=== PATIENT | female | born 1950 | race Caucasian/White ===

== ENCOUNTER 2016-10-02 18:08 | Outpatient (CLI) | payer OTHER ==
--- NOTE | 2016-10-03 09:42 | Ultrasound Report ---
PELVIC ULTRASOUND: 10/02/2016 CLINICAL INDICATION: Postmenopausal bleeding. TECHNIQUE: Transabdominal pelvic ultrasound performed for global evaluation. Transvaginal pelvic ul trasound performed for detailed evaluation. Real-time scanning performed and static images obtained. FINDINGS: The uterus is anteverted, measuring 7.2 x 4.8 x 3.7 cm. The endometrial echo complex is t hickened, measuring 12 mm. No focal myometrial lesion is seen. The ovaries are unremarkable, with t he right measuring 2.0 x 1.2 x 0.9 cm and the left measuring 3.0 x 2.0 x 1.4 cm. No free fluid is pr esent. IMPRESSION: THICKENED ENDOMETRIUM. CORRELATION WITH ENDOMETRIAL BIOPSY IS RECOMMENDED. NORMAL OVAR IES. JOB #: [id number] EXT JOB #:[id number]
== END 2016-10-02 18:09 | disposition home or self-care (01) ==
LOC: DI 18:08
PROVIDERS: ATTEND Internal Medicine
DX: R93.8 Abnormal findings on diagnostic imaging of other specified body structures (principal)
CPT/HCPCS: 76830; 76856

== ENCOUNTER 2016-10-09 07:21 | Outpatient (CLI) | payer MEDICARE ==
[2016-10-09 08:04] LABS: BASOPHILS # (AUTO) 0.1 10^3/uL (0.0-0.1); BASOPHILS % (AUTO) 1.5 %; EOSINOPHILS # (AUTO) 0.3 10^3/uL (0.0-0.7); EOSINOPHILS % (AUTO) 4.3 %; HCT - HEMATOCRIT 43.5 % (37.0-47.0); HGB - HEMOGLOBIN 14.8 g/dL (12.0-16.0); LYMPHOCYTES # (AUTO) 2.3 10^3/uL (1.5-3.5); LYMPHOCYTES % (AUTO) 28.5 %; MEAN CORPUSCULAR HEMOGLOBIN 31.4 pg (27.0-31.0); MEAN CORPUSCULAR HGB CONC 34.1 g/dL (32.0-36.0); MEAN CORPUSCULAR VOLUME 92.2 fL (81.0-99.0); MEAN PLATELET VOLUME 8.1 fL (7.9-10.8); MONOCYTES # (AUTO) 0.9 10^3/uL (0.0-1.0); NEUTROPHILS # (AUTO) 4.4 10^3/uL (1.5-6.6); NEUTROPHILS % (AUTO) 54.7 %; RED BLOOD COUNT 4.72 10^6/uL (4.20-5.40); RED CELL DISTRIBUTION WIDTH 13.6 % (12.0-15.0); UNCORRECTED WHITE BLOOD COUNT 8.1 x10^3/uL; WHITE BLOOD COUNT 8.1 x10^3/uL (4.8-10.8)
[2016-10-09 08:23] LABS: ALBUMIN/GLOBULIN RATIO 1.1 (1.0-2.2); BILIRUBIN,TOTAL 0.7 mg/dL (0.2-1.0); CALCIUM 9.2 mg/dL (8.5-10.3); POTASSIUM 4.1 mmol/L (3.5-5.0); TOTAL PROTEIN 7.3 g/dL (6.7-8.2)
== END 2016-10-09 07:22 | disposition home or self-care (01) ==
LOC: LAB 07:21
PROVIDERS: ATTEND Internal Medicine
DX: K86.1 Other chronic pancreatitis (principal)
CPT/HCPCS: 36415; 80053; 83690; 84443; 85025

== ENCOUNTER 2016-11-13 07:59 | Day surgery (SDC) | payer MEDICARE ==
--- NOTE | 2016-11-11 12:07 | PREOP HISTORY & PHYSICAL ---
DATE OF ADMISSION/SURGERY: 11/13/2016. HISTORY OF PRESENT ILLNESS: The patient is a 66-year-old female, 3, para 2, AB 1, who has bee n approximately menopausal for 10 years and has been on a combination of estrogen and progesterone du ring that whole time. She has had her first episode of postmenopausal bleeding. Ultrasound showed end ometrial thickness of 12 mm. Office biopsy was attempted; however, the cervical stenosis prevented en try into the endometrial cavity. PAST HISTORY: The patient had 2 normal vaginal deliveries. She has had a laparoscopic cholecystectomy in 2007. ALLERGIES 1. PENICILLIN. 2. SULFA. 3. BETADINE. 4. PABA. CURRENT MEDICATIONS Include 1. Prometrium. 2. She was on estradiol 1 mg, that has now been stopped. 3. She also takes an antidepressant. SOCIAL HISTORY: The patient smoked at one point years ago, quit smoking 35 years ago. FAMILY HISTORY: Father, heart disease, age 83, stroke at 83. Sister, rheumatoid arthritis. REVIEW OF SYSTEMS: The patient in the past had recurrent pancreatitis with hospitalizations. Once, ofelia retired several years ago. This has not recurred since. Dermatology, the patient had a melanoma in 1999, which was removed with no recurrence. PHYSICAL EXAMINATION HEENT: Within normal limits. NECK: No thyromegaly. LUNGS: Clear. HEART: Regular rhythm. There is no murmur or gallop. ABDOMEN: Unremarkable. There are no masses or organomegaly. EXTREMITIES: Normal. NEUROLOGIC: Exam is grossly intact. GENITOURINARY: Introitus and vagina are atrophic. The cervical os is stenotic and os finder could not be passed. The uterus is normal size. There are no palpable adnexal masses. IMPRESSION: Postmenopausal bleeding and cervical stenosis. PLAN: Dilatation hysteroscopy and curettage. The procedure has been explained to the patient with the intended anticipated results, and she agrees to proceed. JOB #: [id number] EXT JOB #:[id number]
[2016-11-13] MEDS ORDERED: SCOPOLAMINE PATCH TOP ONE (08:19)
[2016-11-13] MEDS ORDERED: LACTATED RINGERS 1,000 ML IV ONE ×2 (08:19→10:14)
[2016-11-13] MEDS ORDERED: MIDAZOLAM 2 MG/2 ML VIAL IVP ONE (08:45)
[2016-11-13] MEDS ORDERED: DEXAMETHASONE 4 MG/ML VIAL IVP ONE (08:45)
[2016-11-13] MEDS ORDERED: PROPOFOL 200 MG/20 ML VIAL IVP ONE (08:45)
[2016-11-13] MEDS ORDERED: fentaNYL 100 MCG/2 ML VIAL IVP ONE (08:45)
[2016-11-13] MEDS ORDERED: ONDANSETRON 4 MG/2 ML VIAL IVP ONE (08:45)
[2016-11-13] MEDS ORDERED: LIDOCAINE-PF 2% 10 ML AMP SUBQ ONE (08:45)
--- NOTE | 2016-11-13 09:16 | OPERATIVE REPORT ---
DATE OF SURGERY: 11/13/2016 00:00:00 PREOPERATIVE DIAGNOSES 1. Postmenopausal bleeding. 2. Cervical stenosis. OPERATION: Hysteroscopy D and C. POSTOPERATIVE DIAGNOSES 1. Postmenopausal bleeding. 2. Cervical stenosis. SURGEON: Ronen Lopez MD. ANESTHESIA: General with an LMA. PROCEDURE: In the lithotomy position, the patient's perineum and vagina were prepped and draped in th e usual fashion. Speculum was placed in the vagina. The anterior lip of the cervix was grasped with a single-toothed tenaculum. Hegar dilators were utilized to dilate the cervix to an 8. The uterus soun ded to 7 cm. The hysteroscope was inserted under direct vision and saline was the distending medium. There were several small polyps noted and some evidence of generalized hyperplasia. Curettage was und ertaken with return of small amounts of tissue. Lei stone forceps were passed. The specimen was s ubmitted in toto. The patient tolerated the procedure well. There were no intraoperative complication s. BLOOD LOSS: Minimal. JOB #: [id number] EXT JOB #:[id number]
[2016-11-13] MEDS ORDERED: KETOROLAC 15 MG/ML VIAL ONE (09:23)
[2016-11-13] MEDS: HYDROmorphone 1 MG/ML CARPUJECT ONE ×2 (09:26→09:33)
[2016-11-13 11:06] VITALS: BP 116/68
== END 2016-11-13 08:00 | disposition home or self-care (01) ==
LOC: SDS 07:59
PROVIDERS: ATTEND Obstetrics & Gynecology
PROC: 0UDB8ZX Extraction of Endometrium, Via Natural or Artificial Opening Endoscopic, Diagnostic (ICD-10-PCS; principal; 2016-11-13 09:00)
DX: N95.0 Postmenopausal bleeding (principal); N88.2 Stricture and stenosis of cervix uteri
CPT/HCPCS: 58558; J1170; J3490; J7120

== ENCOUNTER 2016-12-02 09:02 | Outpatient (CLI) | payer MEDICARE ==
[2016-12-02 09:59] LABS: CHOL/HDL RATIO 7.1 (<4.4); CHOLESTEROL 254 mg/dL; HDL CHOLESTEROL 36 mg/dL; LDL/HDL RATIO 4.6 (<4.4); TRIGLYCERIDES 253 mg/dL; VLDL CHOLESTEROL 51 mg/dL
== END 2016-12-02 09:03 | disposition home or self-care (01) ==
LOC: LAB 09:02
PROVIDERS: ATTEND Internal Medicine
DX: E78.5 Hyperlipidemia, unspecified (principal)
CPT/HCPCS: 36415; 80061